=== PATIENT | male | born 1975 | race African-American/Black ===

== ENCOUNTER 2017-07-19 11:57 | Emergency (ER) | payer MEDICAID ==
--- NOTE | 2017-07-19 12:20 | EDPHY ---
Addendum entered and electronically signed by Augusta Ulloa PAC 07/19/17 15:11: Addendum; Patient will call the ER tomorrow for results of his blood culture. Levaquin will be changed to 750 mg daily. Original Note: H & P Stated Complaint: anxiety, joint pain Source: Patient Exam Limitations: No limitations - Personal History Current Tetanus/Diphtheria Vaccine: Unsure Current Tetanus Diphtheria and Acellular Pertussis (TDAP): Unsure - Medical/Surgical History Hx Asthma: No Hx Chronic Respiratory Disease: No Hx Diabetes: No Hx Cardiac Disease: No Hx Renal Disease: No Hx Cirrhosis: No Hx Alcoholism: No Hx HIV/AIDS: No Hx Splenectomy or Spleen Trauma: No Other PMH: crohns, perirectal abcess Time Seen by Provider: 07/19/17 12:20 HPI/ROS: HPI: This is a 42-year-old male who presents with Chief Complaint: anxiety, joint pain Location:joint Quality:pain Duration: 1 hour prior to arrival Signs and Symptoms:no fever, + chills, no dysuria, no blood in stool, no abdominal pain, no cough, no chest pain, + shortness of breath Timing: Acute Severity: Severe Context: Patient had a history of Crohn's disease on Remicade and Imuran along with chronic perirectal abscess presents with sudden onset of increased anxiety 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 He reports that he has had to have his peroneal abscess and fish during several times but has been doing well over the last several months. Denies any blood in his stool, perirectal abscess drainage. He did note some discomfort in his rectal area today but that is not uncommon for him while he is ambulating and while at work. He states while he is at work he got cold all a sudden and accompanied by chills that he could not relieved by sitting in car with the heat on. He is not sure if he is getting sicker that he is having a panic attack due to the increased stress. Modifying Factors: None Comment: ROS: see HPI Constitutional: No fever, no chills, no weight loss Eyes: No blurred vision Respiratory: No shortness of breath, no cough Cardiovascular: No chest pain Gastrointestinal: No nausea, no vomiting, no diarrhea Genitourinary: No dysuria Extremities: No myalgias Neurologic: No weakness, no numbness Skin: No rashes Hematologic: No bruising, no bleeding MEDICAL/SURGICAL/SOCIAL HISTORY: Medical history: Crohn's, perirectal abscess Surgical history: Denies Social history: Employed at [employer] CONSTITUTIONAL: Well-developed well-nourished, male, awake and alert, no obvious distress HEENT: Atraumatic and normocephalic, PERRL, EOMI. Tympanic membranes clear. Oropharynx clear, no exudate and moist pink mucosa. Airway patent. No lymphadenopathy. No meningismus. Cardiovascular: Normal S1/S2, regular rate, regular rhythm, without murmur rub or gallop. PULMONARY/CHEST: Symmetrical and nontender. Clear to auscultation bilaterally. Good air movement. No accessory muscle usage. ABDOMEN: Soft, nondistended, nontender, no rebound, no guarding, no peritoneal signs, no masses or organomegaly. No CVAT. RECTAL: Good sphincter tone, light brown stool in vault, no external hemorrhoids , no fissures, no palpable masses, guaiac negative EXTREMITIES: 2/2 pulses, strength 5/5, no deformities, no clubbing, no cyanosis or edema. NEUROLOGICAL: no focal neuro deficits. GCS 15. SKIN: Warm and dry, no erythema. no rash. Good capillary refill. (Augusta Ulloa) Constitutional: Initial Vital Signs Temperature (C) 37.4 C 07/19/17 12:10 Heart Rate 99 07/19/17 12:10 Respiratory Rate 28 H 07/19/17 12:10 Blood Pressure 108/66 07/19/17 12:10 O2 Sat (%) 100 07/19/17 12:10 O2 Delivery Mode Room Air Allergies/Adverse Reactions: Sulfa (Sulfonamide Antibiotics) Allergy (Verified 07/19/17 12:09) Home Medications: Medication Instructions Recorded Imuran 50 mg (*) 07/19/17 Remicade Inj 100 mg (*) 07/19/17 levOFLOXACIN [levAQUIN (*)] 500 mg PO DAILY #6 tab 07/19/17 Medical Decision Making - Diagnostics EKG Interpretation: EKG: Complete interpretation has been separately recorded in the [facility] archive. Summary impression: Sinus rhythm (Cameron Soto) Imaging Results: Imaging Impressions Chest X-Ray 07/19/17 13:42 Impression: Normal. ED Course/Re-evaluation: Blood cultures, labs, EKG, chest x-ray, IV fluids, oral medications ordered Given 2.3 mL normal saline accompanied by 1 mg IV Ativan Vital signs are stable except for tachypnea noted upon arrival. Chest x-ray my read shows no signs of pneumonia, effusion, pneumothorax Labs reviewed and showed increased WBC of 14 K and lactic acidosis 3.7 Guaiac positive stool 1400: Reassessed patient and still denies abdominal pain. Abdomen exam is soft and nontender. Urinalysis negative for dehydration or infection Repeat lactic acid down to 2.4 Negative influenza This patient was seen with secondary supervising physician. Patient's presentation, labs/imaging, treatment and plan of care were reviewed with secondary supervising physician. Plan is to give a dose of IV Levaquin in the ER and a script for the same with follow up with PCP in 2 days Reassessed patient he reports that he feels back to baseline. He wants to go home and is agreeable to plan. No clear source has been identified. Suspect viral in nature. But will not know for sure until blood cultures results. (Augusta Ulloa) Differential Diagnosis: Differential diagnosis includes but is not limited to sepsis, influenza, viral syndrome, anxiety. (Augusta Ulloa) Other Provider: Independent physician evaluation: I evaluated and participated in the management of the patient. I also evaluated the patient independently. My co-signature indicates that I have reviewed this chart and I agree with the findings and plan of care as documented. My personal H&P findings include: The patient presents to the ED after an episode of acute generalized arthralgias and shaking chills. The patient reports the symptoms began abruptly today. The patient has a history of Crohn's disease and receives Remicade infusion every 6 weeks. 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 The patient denies any acute change in his underlying rectal pain. The patient reports dental work several weeks ago. The patient denies any cough, congestion, abdominal pain or rhinorrhea. The patient had an IV established. The patient is noted to have leukocytosis. The patient was observed in the emergency department for several hours without the development of tachycardia or hypotension. He did develop a low-grade fever while in the ED. At this point time there is no evidence of an obvious bacterial infection. Given his history of inflammatory bowel disease and Remicade infusion blood cultures x2 have been obtained. I did curbside Dr. Chaudhary from Infectious Disease. The patient looks very well and has follow-up with a primary care provider in [place]. In the event he experienced a translocation which resulted in transient bacteremia he will be started on empiric Levaquin pending results of his blood cultures. Patient is comfortable being discharged home. He does understand to contact the emergency department to check the results of his blood culture in the next 1 -2 days. We will clearly notify him of those become positive. The patient will follow up with his PCP for a recheck tomorrow. (Cameron Soto) - Data Points Laboratory Results: Laboratory Results 07/19/17 12:50 07/19/17 12:50 07/19/17 07/19/17 07/19/17 14:12 13:50 13:50 WBC RBC Hgb Hct MCV MCH MCHC RDW Plt Count MPV Neut % (Auto) Lymph % (Auto) [place] % (Auto) Eos % (Auto) Baso % (Auto) Nucleat RBC Rel Count Absolute Neuts (auto) Absolute Lymphs (auto) Absolute Monos (auto) Absolute Eos (auto) Absolute Basos (auto) Absolute Nucleated RBC Immature Gran % Immature Gran # ESR VBG Lactic Acid 2.4 mmol/L H D mmol/L (0.7-2.1) Sodium Potassium Chloride Carbon Dioxide Anion Gap BUN Creatinine Estimated GFR Glucose Calcium Urine Color YELLOW Urine Appearance HAZY Urine pH 6.0 (5.0-7.5) Ur Specific [place] 1.014 (1.002-1.030) Urine Protein NEGATIVE (NEGATIVE) Urine Ketones NEGATIVE (NEGATIVE) Urine Blood NEGATIVE (NEGATIVE) Urine Nitrate NEGATIVE (NEGATIVE) Urine Bilirubin NEGATIVE (NEGATIVE) Urine Urobilinogen NEGATIVE EU EU (0.2-1.0) Ur Leukocyte Esterase NEGATIVE (NEGATIVE) Urine Glucose NEGATIVE (NEGATIVE) Nasal Influenza A PCR NEGATIVE FOR FLU A (NEGATIVE) Nasal Influenza B PCR NEGATIVE FOR FLU B (NEGATIVE) Stool Occult Bld Scrn 07/19/17 07/19/17 07/19/17 12:50 12:50 12:50 WBC 14.25 10^3/uL H 10^3/uL (3.80-9.50) RBC 4.97 10^6/uL 10^6/uL (4.40-6.38) Hgb 15.3 g/dL g/dL (13.7-17.5) Hct 42.0 % % (40.0-51.0) MCV 84.5 fL fL (81.5-99.8) MCH 30.8 pg pg (27.9-34.1) MCHC 36.4 g/dL g/dL (32.4-36.7) RDW 13.5 % % (11.5-15.2) Plt Count 263 10^3/uL 10^3/uL (150-400) MPV 9.5 fL fL (8.7-11.7) Neut % (Auto) 89.0 % H % (39.3-74.2) Lymph % (Auto) 6.2 % L % (15.0-45.0) [place] % (Auto) 3.8 % L % (4.5-13.0) Eos % (Auto) 0.1 % L % (0.6-7.6) Baso % (Auto) 0.4 % % (0.3-1.7) Nucleat RBC Rel Count 0.0 % % (0.0-0.2) Absolute Neuts (auto) 12.69 10^3/uL H 10^3/uL (1.70-6.50) Absolute Lymphs (auto) 0.89 10^3/uL L 10^3/uL (1.00-3.00) Absolute Monos (auto) 0.54 10^3/uL 10^3/uL (0.30-0.80) Absolute Eos (auto) 0.01 10^3/uL L 10^3/uL (0.03-0.40) Absolute Basos (auto) 0.05 10^3/uL 10^3/uL (0.02-0.10) Absolute Nucleated RBC 0.00 10^3/uL 10^3/uL (0-0.01) Immature Gran % 0.5 % % (0.0-1.1) Immature Gran # 0.07 10^3/uL 10^3/uL (0.00-0.10) ESR 10 MM/HR MM/HR (0-15) VBG Lactic Acid Sodium 142 mEq/L mEq/L (134-144) Potassium 4.3 mEq/L mEq/L (3.5-5.2) Chloride 106 mEq/L mEq/L (97-110) Carbon Dioxide 22 mEq/l mEq/l (22-31) Anion Gap 14 mEq/L mEq/L (8-16) BUN 16 mg/dL mg/dL (7-23) Creatinine 1.3 mg/dL mg/dL (0.7-1.3) Estimated GFR 60 Glucose 85 mg/dL mg/dL (70-100) Calcium 10.3 mg/dL mg/dL (8.5-10.4) Urine Color Urine Appearance Urine pH Ur Specific [place] Urine Protein Urine Ketones Urine Blood Urine Nitrate Urine Bilirubin Urine Urobilinogen Ur Leukocyte Esterase Urine Glucose Nasal Influenza A PCR Nasal Influenza B PCR Stool Occult Bld Scrn POSITIVE H (NEGATIVE) 07/19/17 12:50 WBC RBC Hgb Hct MCV MCH MCHC RDW Plt Count MPV Neut % (Auto) Lymph % (Auto) [place] % (Auto) Eos % (Auto) Baso % (Auto) Nucleat RBC Rel Count Absolute Neuts (auto) Absolute Lymphs (auto) Absolute Monos (auto) Absolute Eos (auto) Absolute Basos (auto) Absolute Nucleated RBC Immature Gran % Immature Gran # ESR VBG Lactic Acid 3.7 mmol/L H mmol/L (0.7-2.1) Sodium Potassium Chloride Carbon Dioxide Anion Gap BUN Creatinine Estimated GFR Glucose Calcium Urine Color Urine Appearance Urine pH Ur Specific [place] Urine Protein Urine Ketones Urine Blood Urine Nitrate Urine Bilirubin Urine Urobilinogen Ur Leukocyte Esterase Urine Glucose Nasal Influenza A PCR Nasal Influenza B PCR Stool Occult Bld Scrn Medications Given: Levofloxacin/Dextrose (Levaquin 750 Mg (Premix)) 150 mls @ 100 mls/hr IV EDNOW ONE PRN Reason: Protocol Stop: 07/19/17 16:26 Last Admin: 07/19/17 15:12 Dose: 150 mls Discontinued Medications Sodium Chloride (Ns) 2,300 mls @ 4,600 mls/hr 30 ml/kg infuse over 30 min ( 2300 ml) IV EDNOW ONE PRN Reason: Protocol Stop: 07/19/17 12:56 Last Admin: 07/19/17 12:48 Dose: 2,300 mls Lorazepam (Ativan Injection) 1 mg IVP EDNOW ONE Stop: 07/19/17 12:29 Last Admin: 07/19/17 12:48 Dose: 1 mg Departure - Departure Disposition: Home, Routine, Self-Care Condition: Good Instructions: Viral Syndrome (ED) Additional Instructions: 1. Please take antibiotics as directed for next 10 days to cover for possible bacterial infection. 2. Please contact the emergency department tomorrow at TO CHECK THE RESULTS OF YOUR BLOOD CULTURES. 3. Please schedule a follow-up appointment with your primary care provider for a recheck tomorrow. 4. Please return to the ED immediately if you developed recurrent symptoms of shaking chills, developed acute pain, uncontrolled fever or other concerns. Stand Alone Forms: Work Excuse Prescriptions: levOFLOXACIN [levAQUIN (*)] 500 mg PO DAILY #6 tab
[2017-07-19] MEDS ORDERED: NS 2,300 ML IV ONE (12:27)
[2017-07-19] MEDS ORDERED: LORazepam 2 MG/ML INJ IVP ONE (12:28)
[2017-07-19 12:58] LABS: PLATELET COUNT 263 10^3/uL (150-400)
--- NOTE | 2017-07-19 13:15 | CPEKG ---
Heart Rate: 78 RR Interval: 769 P-R Interval: 140 QRSD Interval: 74 QT Interval: 352 QTC Interval: 401 P [place]: 69 QRS [place]: 73 T Wave [place]: 21 EKG Severity - NORMAL ECG - EKG Impression: SINUS RHYTHM Electronically Signed By: Cameron Soto 19-Jul-2017 13:30:05
[2017-07-19 14:44] VITALS: TEMP 100; O2SAT 96
[2017-07-19 16:46] VITALS: BP 110/50; PULSE 94; RESP 16
== END 2017-07-19 16:45 | disposition home or self-care (01) ==
DX: R78.81 Bacteremia (principal); E86.9 Volume depletion, unspecified
CPT/HCPCS: 96374; J1956; J2060